=== PATIENT | female | born 1955 | race Caucasian/White ===

== ENCOUNTER 2017-08-24 16:34 | Inpatient (IN) | payer OTHER ==
[2017-08-24] VITALS (8 sets, daily range): BP systolic 144–204; BP diastolic 67–99; PULSE 43–82; RESP 16–22; TEMP 97.3; O2SAT 95–100
[~2017-08-24] VITALS: Ht 160 cm; Wt 60.5 kg
[~2017-08-24 16:34] MED LIST: ALPR0.5T3 PO; AMBI5TAB PO; ASPI81TA82 PO; CARV6.252 PO; HYDR-2768 PO; IRBE150T49 PO; LEVO.025 PO; NIFE1TAB86 PO; ZOCO40TA PO
[2017-08-24] MEDS ORDERED: SODIUM CHLORIDE 0.9% FLUSH 10 ML FLUSH IVF PRN (17:15)
[2017-08-24] MEDS ORDERED: ASPIRIN 81 MG CHEW TAB PO ONE (17:30)
--- NOTE | 2017-08-24 17:43 | PD ---
HPI Chief Complaint: Chest Pain Time Seen by Provider: 17:10 Travel History International Travel<30 days: No Contact w/Intl Traveler<30days: No Traveled to known affect area: No History of Present Illness HPI 62-year-old female states she developed chest pain with left arm numbness and sweaty feeling this morning. She states this weekend she flew up to [place] for her daughter's wedding and flew back yesterday. She denies other concurrent complaints other than intermittent shortness of breath. She states she took a baby aspirin today. She denies any prior cardiac issues or routine heart testing. She denies specific modifying factors. Quality is pressure. Severity is moderate. Duration is today. She states she tried a Xanax without relief. PFS Past Medical History Anxiety: Yes Cancer: No Cardiovascular Problems: Yes (HYPERTENSION) Diabetes: No Diminished Hearing: No Genitourinary: No Hypertension: Yes Reproductive: No Migraines: Yes Thyroid Disease: Yes Past Surgical History Abdominal Surgery: Yes (GALLBLADDER) Gynecologic Surgery: Yes (HYSTERECTOMY) Hysterectomy: Yes Oral Surgery: Yes (ADENOTONSILLECTOMY) Pacemaker: No Social History Alcohol Use: No Tobacco Use: No Substance Use: No Allergies-Medications (Allergen,Severity, Reaction): Coded Allergies: No Known Allergies (Unverified , 01/14/16) Reported Meds & Prescriptions Reported Meds & Active Scripts Active Reported K-Tab (Potassium Chloride) 20 Meq Tab 40 Meq PO DAILY Levothyroxine (Levothyroxine Sodium) 50 Mcg Tab 50 Mcg PO DAILY Losartan (Losartan Potassium) 50 Mg Tab 50 Mg PO BID Coreg (Carvedilol) 6.25 Mg Tab 6.25 Mg PO BID Alprazolam 0.5 Mg Tab 0.5-1 Mg PO BID PRN Vitamin D3 (Cholecalciferol) 50,000 Unit Cap 50,000 Units PO WEEKLY Nifedipine ER 24 HR (Nifedipine) 60 Mg Tab 60 Mg PO DAILY Hydrochlorothiazide 25 Mg Tab 25 Mg PO DAILY Prozac (Fluoxetine HCl) 20 Mg Cap 40 Mg PO DAILY Review of Systems Except as stated in HPI: all other systems reviewed are Neg Physical Exam Narrative GENERAL: 62-year-old female in no apparent distress SKIN: Focused skin assessment warm/dry. HEAD: Atraumatic. Normocephalic. EYES: Pupils equal and round. No scleral icterus. No injection or drainage. ENT: No nasal bleeding or discharge. Mucous membranes pink and moist. NECK: Trachea midline. CARDIOVASCULAR: Regular rate and rhythm. No murmur appreciated. RESPIRATORY: No accessory muscle use. Clear to auscultation. Breath sounds equal bilaterally. GASTROINTESTINAL: Abdomen soft, non-tender, nondistended. MUSCULOSKELETAL: No obvious deformities. No clubbing. No cyanosis. Mild bilateral pedal edema noted NEUROLOGICAL: Awake and alert. No obvious cranial nerve deficits. Motor grossly within normal limits. Normal speech. PSYCHIATRIC: Appropriate mood and affect; insight and judgment normal. Data Data Last Documented VS Vital Signs Date Time Temp Pulse Resp B/P (MAP) Pulse Ox O2 Delivery O2 Flow Rate FiO2 08/24/17 17:41 66 18 98 08/24/17 17:41 153/69 (97) Room Air 08/24/17 16:46 97.3 Orders Orders Electrocardiogram (08/24/17 17:11) B-Type Natriuretic Peptide (08/24/17 17:11) Ckmb (Isoenzyme) Profile (08/24/17 17:11) Complete Blood Count With Diff (08/24/17 17:11) Comprehensive Metabolic Panel (08/24/17 17:11) D-Dimer (08/24/17 17:11) Magnesium (Mg) (08/24/17 17:11) Prothrombin Time / Inr (Pt) (08/24/17 17:11) Act Partial Throm Time (Ptt) (08/24/17 17:11) Troponin I (08/24/17 17:11) Chest, Single Ap (08/24/17 17:11) Ecg Monitoring (08/24/17 17:11) Bilateral Bp Monitoring (08/24/17 17:11) Iv Access Insert/Monitor (08/24/17 17:11) Oximetry (08/24/17 17:11) Sodium Chloride 0.9% Flush (Ns Flush) (08/24/17 17:15) Aspirin Chew (Aspirin Chew) (08/24/17 17:30) Potassium Chloride Eff (K-Lyte Cl Eff) (08/24/17 18:45) Nitroglycerin 2% Oint (Nitroglycerin 2% (08/24/17 19:00) Admit Order (Ed Use Only) (08/24/17 18:55) Labs Laboratory Tests Test 08/24/17 17:55 White Blood Count 7.6 TH/MM3 Red Blood Count 3.96 MIL/MM3 Hemoglobin 12.8 GM/DL Hematocrit 36.9 % Mean Corpuscular Volume 93.2 FL Mean Corpuscular Hemoglobin 32.3 PG Mean Corpuscular Hemoglobin Concent 34.7 % Red Cell Distribution Width 12.9 % Platelet Count 212 TH/MM3 Mean Platelet Volume 9.2 FL Neutrophils (%) (Auto) 75.2 % Lymphocytes (%) (Auto) 15.3 % Monocytes (%) (Auto) 7.5 % Eosinophils (%) (Auto) 1.4 % Basophils (%) (Auto) 0.6 % Neutrophils # (Auto) 5.7 TH/MM3 Lymphocytes # (Auto) 1.2 TH/MM3 Monocytes # (Auto) 0.6 TH/MM3 Eosinophils # (Auto) 0.1 TH/MM3 Basophils # (Auto) 0.0 TH/MM3 CBC Comment DIFF FINAL Differential Comment Prothrombin Time 10.2 SEC Prothromb Time International Ratio 1.0 RATIO Activated Partial Thromboplast Time 25.3 SEC D-Dimer Quantitative (PE/DVT) 0.41 MG/L FEU Blood Urea Nitrogen 17 MG/DL Creatinine 0.70 MG/DL Random Glucose 110 MG/DL Total Protein 7.2 GM/DL Albumin 3.6 GM/DL Calcium Level 8.7 MG/DL Magnesium Level 1.9 MG/DL Alkaline Phosphatase 64 U/L Aspartate Amino Transf (AST/SGOT) 22 U/L Alanine Aminotransferase (ALT/SGPT) 29 U/L Total Bilirubin 0.3 MG/DL Sodium Level 138 MEQ/L Potassium Level 3.0 MEQ/L Chloride Level 102 MEQ/L Carbon Dioxide Level 28.6 MEQ/L Anion Gap 7 MEQ/L Estimat Glomerular Filtration Rate 85 ML/MIN Total Creatine Kinase 75 U/L Troponin I 0.14 NG/ML [facility] Medical Decision Making Medical Screen Exam Complete: Yes Emergency Medical Condition: Yes Medical Record Reviewed: Yes (Past history confirmed) Interpretation(s) CBC & BMP Diagram 08/24/17 17:55 Total Protein 7.2, Albumin 3.6, Calcium Level 8.7, Magnesium Level 1.9, Alkaline Phosphatase 64, Aspartate Amino Transf (AST/SGOT) 22, Alanine Aminotransferase (ALT/SGPT) 29, Total Bilirubin 0.3 Last 24 hours Impressions Chest X-Ray 08/24/17 1711 Signed Impressions: Service Date/Time: Thursday, August 24, 2017 17:39 - CONCLUSION: No acute cardiopulmonary disease identified. Ab Luna MD Differential Diagnosis Anemia, AR, PE Narrative Course We will check blood work, chest x-ray, EKG and dose with aspirin and reevaluate. D-dimer is negative. Troponin with mild elevation. Will admit for further cardiac workup. Physician Communication Physician Communication dr shepard states to admit to dr caruso Diagnosis Primary Impression: Chest pain Qualified Codes: R07.9 - Chest pain, unspecified Additional Impressions: Elevated troponin Hypokalemia Admitting Information Admitting Physician Requests: Observation Leydi Purvis MD Aug 24, 2017 17:43
[2017-08-24] MEDS ORDERED: ALPR0.5T3 PO (18:00)
[2017-08-24] MEDS ORDERED: LEVO50TA4 PO (18:00)
[2017-08-24] MEDS ORDERED: CARV6.25 PO (18:00)
[2017-08-24] MEDS ORDERED: POTA1TAB4 PO (18:00)
[2017-08-24] MEDS ORDERED: HYDR25TA5 PO (18:00)
[2017-08-24] MEDS ORDERED: NIFE60TA58 PO (18:00)
[2017-08-24] MEDS ORDERED: LOSA50TA PO (18:00)
[2017-08-24] MEDS ORDERED: PROZ20CA11 PO (18:00)
[2017-08-24] MEDS ORDERED: CHOL1CAP34 PO (18:00)
--- NOTE | 2017-08-24 18:02 | RADRPT ---
EXAM DATE/TIME: 08/24/2017 17:39 [facility] COMPARISON: No previous studies available for comparison. INDICATIONS : Chest pain. MEDICAL HISTORY : Hypertension. SURGICAL HISTORY : None. ENCOUNTER: Initial ACUITY: 1 day PAIN SCORE: 7/10 LOCATION: middle chest. FINDINGS: Single AP view of the chest. The lungs are clear. Cardiomediastinal silhouette within normal limits. No evidence of pleural effusion or pneumothorax. CONCLUSION: No acute cardiopulmonary disease identified. Ab Luna MD on August 24, 2017 at 17:59 Board Certified Radiologist. This report was verified electronically.
[2017-08-24 18:05] LABS: AUTOMATED NEUTROPHIL # 5.7 TH/MM3 (1.8-7.7); BASOPHIL % 0.6 % (0.0-2.0); EOSINOPHIL # 0.1 TH/MM3 (0-0.4); EOSINOPHIL % 1.4 % (0.0-4.0); HEMATOCRIT 36.9 % (35.0-46.0); HEMOGLOBIN 12.8 GM/DL (11.6-15.3); LYMPH % 15.3 % (9.0-44.0); LYMPHOCYTE # 1.2 TH/MM3 (1.0-4.8); MEAN CELL VOLUME 93.2 FL (80.0-100.0); MEAN CORPUSCULAR HEMOGLOBIN 32.3 PG (27.0-34.0); MEAN CORPUSCULAR HGB CONC 34.7 % (32.0-36.0); MEAN PLATELET VOLUME 9.2 FL (7.0-11.0); MONO % 7.5 % (0.0-8.0); MONOCYTE # 0.6 TH/MM3 (0-0.9); NEUT % 75.2 % (16.0-70.0); PLATELET COUNT 212 TH/MM3 (150-450); RED BLOOD COUNT 3.96 MIL/MM3 (4.00-5.30); RED CELL DISTRIBUTION WIDTH 12.9 % (11.6-17.2); WHITE BLOOD COUNT 7.6 TH/MM3 (4.0-11.0)
[2017-08-24 18:22] LABS: PROTHROMBIN TIME - PATIENT 10.2 SEC (9.8-11.6)
[2017-08-24 18:23] LABS: D-DIMER 0.41 MG/L FEU (0.00-0.50)
[2017-08-24 18:34] LABS: ALBUMIN 3.6 GM/DL (3.4-5.0); ALT (GPT) 29 U/L (10-53); BICARBONATE 28.6 MEQ/L (21.0-32.0); BLOOD UREA NITROGEN 17 MG/DL (7-18); CALCIUM 8.7 MG/DL (8.5-10.1); CHLORIDE 102 MEQ/L (98-107); GLOMERULAR FILTRATION RATE 85 ML/MIN (>89); GLUCOSE,RANDOM 110 MG/DL (74-106); MAGNESIUM 1.9 MG/DL (1.5-2.5); SODIUM (NA) 138 MEQ/L (136-145)
[2017-08-24 18:35] LABS: AST (GOT) 22 U/L (15-37)
[2017-08-24 18:38] LABS: ALKALINE PHOSPHATASE 64 U/L (45-117); TOTAL BILIRUBIN ADULT 0.3 MG/DL (0.2-1.0); TOTAL PROTEIN 7.2 GM/DL (6.4-8.2); TROPONIN I 0.14 NG/ML (0.02-0.05)
[2017-08-24] MEDS ORDERED: POTASSIUM CHLORIDE 25 MEQ EFFERVESCENT TAB PO ONE (18:45)
[2017-08-24] MEDS ORDERED: NITROGLYCERIN 2% OINT 1 GM PACKET TOP ONE (19:00)
[2017-08-24] MEDS ORDERED: MORPHINE SULFATE 4 MG/ML INJ IV PUSH ONE (19:15)
[2017-08-24] MEDS ORDERED: ONDANSETRON HCL 4 MG/2 ML VIAL IV PUSH ONE (19:15)
[2017-08-24] MEDS ORDERED: NITROGLYCERIN-D5W 50 MG/250 ML 250 ML IV PRN (20:30)
[2017-08-24] MEDS ORDERED: [UNRECOGNIZED DRUG - OTHER] SCH (20:30)
[2017-08-24] MEDS ORDERED: LACTULOSE SYRUP 20 GM/30 ML CUP PO PRN (21:00)
[2017-08-24] MEDS ORDERED: MAGNESIUM HYDROXIDE SUSP 30 ML CUP PO PRN (21:00)
[2017-08-24] MEDS ORDERED: SENNOSIDES 8.6 MG TAB PO PRN (21:00)
[2017-08-24] MEDS ORDERED: ONDANSETRON HCL 4 MG/2 ML VIAL IVP PRN (21:00)
[2017-08-24] MEDS ORDERED: SODIUM CHLORIDE 0.9% FLUSH 10 ML FLUSH IV FLUSH PRN (21:00)
[2017-08-24] MEDS ORDERED: ALPRAZolam 0.5 MG TAB PO PRN (21:00)
[2017-08-24] MEDS ORDERED: BISACODYL 10 MG SUPP RECTAL PRN (21:00)
[2017-08-24] MEDS ORDERED: NALOXONE HCL 0.4 MG/ML AMP IV PUSH PRN (21:00)
[2017-08-24] MEDS: CARVEDILOL 6.25 MG TAB PO SCH (21:04)
[2017-08-24] MEDS: LOSARTAN 50 MG TAB PO SCH (21:05)
[2017-08-24] MEDS ORDERED: HEPARIN-D5W 25,000 U/250 ML 250 ML IV PRN (21:15)
[2017-08-24] MEDS: SODIUM CHLORIDE 0.9% FLUSH 10 ML FLUSH IV FLUSH SCH (21:37)
--- NOTE | 2017-08-24 21:46 | HHI.HP ---
HPI Service [facility] Hospitalists Primary Care Physician Babatunde Oneal M.D. Admission Diagnosis chest pain, elevated troponin Chief Complaint: chest pain today Travel History International Travel<30 Days: No Contact w/Intl Traveler <30 Da: No Traveled to Known Affected Are: No History of Present Illness 62-year-old female states she developed chest pain with left arm numbness and sweaty feeling this morning. She states this weekend she flew up to [place] for her daughter's wedding and flew back yesterday. She denies other concurrent complaints other than intermittent shortness of breath. She states she took a baby aspirin today. She denies any prior cardiac issues or routine heart testing. She denies specific modifying factors. Quality is pressure. Severity is moderate. Duration is today. She states she tried a Xanax without relief. Patient also has had intermittant diaphoresis and nausea and vomit , patient in er received IV morphine and ntg paste but pain continued and started on nitro drip which is helping will admit to IMC or CVICU consult cardiology. Review of Systems Constitutional: COMPLAINS OF: Diaphoretic episodes, Fatigue Respiratory: COMPLAINS OF: Shortness of breath Cardiovascular: COMPLAINS OF: Chest pain Gastrointestinal: COMPLAINS OF: Nausea, Vomiting Past Family Social History Past Medical History hypertension,depression ,anxiety Past Surgical History GB,hysterectomy,tonsil Reported Medications K-Tab (Potassium Chloride) 20 Meq Tab 40 Meq PO DAILY Levothyroxine (Levothyroxine Sodium) 50 Mcg Tab 50 Mcg PO DAILY Losartan (Losartan Potassium) 50 Mg Tab 50 Mg PO BID Coreg (Carvedilol) 6.25 Mg Tab 6.25 Mg PO BID Alprazolam 0.5 Mg Tab 0.5-1 Mg PO BID PRN Vitamin D3 (Cholecalciferol) 50,000 Unit Cap 50,000 Units PO WEEKLY Nifedipine ER 24 HR (Nifedipine) 60 Mg Tab 60 Mg PO DAILY Hydrochlorothiazide 25 Mg Tab 25 Mg PO DAILY Prozac (Fluoxetine HCl) 20 Mg Cap 40 Mg PO DAILY Allergies: Coded Allergies: No Known Allergies (Unverified , 01/14/16) Social History NS,ND Physical Exam Vital Signs Vital Signs Date Time Temp Pulse Resp B/P (MAP) Pulse Ox O2 Delivery O2 Flow Rate FiO2 08/24/17 20:59 61 173/76 08/24/17 20:21 65 16 204/91 (128) 100 Room Air 08/24/17 19:27 77 18 167/99 (121) 100 08/24/17 19:05 67 18 190/88 (122) 98 Room Air 08/24/17 17:41 66 18 98 08/24/17 17:41 68 18 153/69 (97) 99 Room Air 08/24/17 17:13 18 08/24/17 16:46 97.3 43 22 199/96 (130) 100 Physical Exam GENERAL: This is a well-nourished, well-developed patient, in no apparent distress but was in distress earlier when had chest pain SKIN: No rashes, ecchymoses or lesions. Cool and dry. HEAD: Atraumatic. Normocephalic. No temporal or scalp tenderness. EYES: Pupils equal round and reactive. Extraocular motions intact. No scleral icterus. No injection or drainage. ENT: Nose without bleeding, purulent drainage or septal hematoma. Throat without erythema, tonsillar hypertrophy or exudate. Uvula midline. Airway patent. NECK: Trachea midline. No JVD or lymphadenopathy. Supple, nontender, no meningeal signs. CARDIOVASCULAR: Regular rate and rhythm without murmurs, gallops, or rubs. RESPIRATORY: Clear to auscultation. Breath sounds equal bilaterally. No wheezes , rales, or rhonchi. GASTROINTESTINAL: Abdomen soft, non-tender, nondistended. No hepato-splenomegaly , or palpable masses. No guarding. MUSCULOSKELETAL: Extremities without clubbing, cyanosis, or edema. No joint tenderness, effusion, or edema noted. No calf tenderness. Negative Homans sign bilaterally. NEUROLOGICAL: Awake and alert. Cranial nerves II through XII intact. Motor and sensory grossly within normal limits. Five out of 5 muscle strength in all muscle groups. Normal speech. Laboratory Laboratory Tests Test 08/24/17 17:55 08/24/17 21:20 White Blood Count 7.6 Red Blood Count 3.96 Hemoglobin 12.8 Hematocrit 36.9 Mean Corpuscular Volume 93.2 Mean Corpuscular Hemoglobin 32.3 Mean Corpuscular Hemoglobin Concent 34.7 Red Cell Distribution Width 12.9 Platelet Count 212 Mean Platelet Volume 9.2 Neutrophils (%) (Auto) 75.2 Lymphocytes (%) (Auto) 15.3 Monocytes (%) (Auto) 7.5 Eosinophils (%) (Auto) 1.4 Basophils (%) (Auto) 0.6 Neutrophils # (Auto) 5.7 Lymphocytes # (Auto) 1.2 Monocytes # (Auto) 0.6 Eosinophils # (Auto) 0.1 Basophils # (Auto) 0.0 CBC Comment DIFF FINAL Differential Comment Prothrombin Time 10.2 Prothromb Time International Ratio 1.0 Activated Partial Thromboplast Time 25.3 D-Dimer Quantitative (PE/DVT) 0.41 Blood Urea Nitrogen 17 Creatinine 0.70 Random Glucose 110 Total Protein 7.2 Albumin 3.6 Calcium Level 8.7 Magnesium Level 1.9 Alkaline Phosphatase 64 Aspartate Amino Transf (AST/SGOT) 22 Alanine Aminotransferase (ALT/SGPT) 29 Total Bilirubin 0.3 Sodium Level 138 Potassium Level 3.0 Chloride Level 102 Carbon Dioxide Level 28.6 Anion Gap 7 Estimat Glomerular Filtration Rate 85 Total Creatine Kinase 75 Troponin I 0.14 B-Type Natriuretic Peptide 33 Lipase 108 Result Diagram: 08/24/17 1755 08/24/17 1755 Imaging Last 24 hours Impressions Chest X-Ray 08/24/17 1711 Signed Impressions: Service Date/Time: Thursday, August 24, 2017 17:39 - CONCLUSION: No acute cardiopulmonary disease identified. Ab Luna MD Course started ntg drip iv morphine Caprini VTE Risk Assessment Caprini VTE Risk Assessment: Mod/High Risk (score >= 2) Caprini Risk Assessment Model Point Value = 1 Point Value = 2 Point Value = 3 Point Value = 5 Age 41-60 Minor surgery BMI > 25 kg/m2 Swollen legs Varicose veins or History of unexplained or recurrent spontaneous Oral contraceptives or hormone replacement Sepsis (< 1 month) Serious lung disease, including pneumonia (< 1 month) Abnormal pulmonary function Acute myocardial infarction Congestive heart failure (< 1 month) History of inflammatory bowel disease Medical patient at bed rest Age 61-74 Arthroscopic surgery Major open surgery (> 45 min) Laparoscopic surgery (> 45 min) Malignancy Confined to bed (> 72 hours) Immobilizing plaster cast Central venous access Age >= 75 History of VTE Family history of VTE Factor V Leiden Prothrombin [id number] Lupus anticoagulant Anticardiolipin antibodies Elevated serum homocysteine Heparin-induced thrombocytopenia Other congenital or acquired thrombophilia Stroke (< 1 month) Elective arthroplasty Hip, pelvis, or leg fracture Acute spinal cord injury (< 1 month) Prophylaxis Regimen Total Risk Factor Score Risk Level Prophylaxis Regimen 0-1 Low Early ambulation 2 Moderate Order ONE of the following: *Sequential Compression Device (SCD) *Heparin 5000 units SQ BID 3-4 Higher Order ONE of the following medications: *Heparin 5000 units SQ TID *Enoxaparin/Lovenox 40 mg SQ daily (WT < 150 kg, CrCl > 30 mL/min) *Enoxaparin/Lovenox 30 mg SQ daily (WT < 150 kg, CrCl > 10-29 mL/min) *Enoxaparin/Lovenox 30 mg SQ BID (WT < 150 kg, CrCl > 30 mL/min) AND/OR *Sequential Compression Device (SCD) 5 or more Highest Order ONE of the following medications: *Heparin 5000 units SQ TID (Preferred with Epidurals) *Enoxaparin/Lovenox 40 mg SQ daily (WT < 150 kg, CrCl > 30 mL/min) *Enoxaparin/Lovenox 30 mg SQ daily (WT < 150 kg, CrCl > 10-29 mL/min) *Enoxaparin/Lovenox 30 mg SQ BID (WT < 150 kg, CrCl > 30 mL/min) AND *Sequential Compression Device (SCD) Assessment and Plan Problem List: (1) Chest pain ICD Codes: R07.9 - Chest pain, unspecified Status: Acute Plan: admit to unit ntg drip morphine consult cardiology discussed will start heparin serial enzymes and ekg (2) Elevated troponin ICD Codes: R74.8 - Abnormal levels of other serum enzymes Status: Acute Plan: as above (3) HTN (hypertension) ICD Codes: I10 - Essential (primary) hypertension Status: Chronic Plan: continue home medications Assessment and Plan further plan as case develops Code Status full Discussed Condition With patient Physician Certification 2 Midnight Certification Type: Admission for Inpatient Services Order for Inpatient Services The services are ordered in accordance with Medicare regulations or non- Medicare payer requirements, as applicable. In the case of services not specified as inpatient-only, they are appropriately provided as inpatient services in accordance with the 2-midnight benchmark. Estimated LOS (days): 3 3 days is the estimated time the patient will need to remain in the hospital, assuming treatment plan goals are met and no additional complications. Post-Hospital Plan: Not yet determined Problem Qualifiers (1) Chest pain: Qualified Codes: R07.9 - Chest pain, unspecified Cucchiarella,Isma C. MD Aug 24, 2017 21:46
[2017-08-24] MEDS: DOCUSATE SODIUM 50 MG/SENNA 8.6 MG TAB PO SCH (21:52)
[2017-08-24] MEDS: PANTOPRAZOLE SODIUM 40 MG VIAL IV PUSH SCH (22:08)
[2017-08-24 22:11] LABS: TROPONIN I 0.98 NG/ML (0.02-0.05)
[2017-08-24 22:42] LABS: HEMATOCRIT 36.5 % (35.0-46.0); HEMOGLOBIN 12.5 GM/DL (11.6-15.3); MEAN CELL VOLUME 92.3 FL (80.0-100.0); MEAN CORPUSCULAR HEMOGLOBIN 31.6 PG (27.0-34.0); MEAN CORPUSCULAR HGB CONC 34.3 % (32.0-36.0); MEAN PLATELET VOLUME 9.6 FL (7.0-11.0); PLATELET COUNT 212 TH/MM3 (150-450); RED BLOOD COUNT 3.96 MIL/MM3 (4.00-5.30); WHITE BLOOD COUNT 7.1 TH/MM3 (4.0-11.0)
[2017-08-24 22:56] LABS: PROTHROMBIN TIME - PATIENT 10.4 SEC (9.8-11.6)
[2017-08-25] VITALS (26 sets, daily range): BP systolic 109–166; BP diastolic 55–78; PULSE 54–81; RESP 12–18; TEMP 97.5–99.3; O2SAT 94–97
[2017-08-25] MEDS: MORPHINE SULFATE 2 MG/ML SYRINGE IV PUSH PRN (00:20)
[2017-08-25 04:47] LABS: TROPONIN I 4.55 NG/ML (0.02-0.05)
[2017-08-25] MEDS: LEVOTHYROXINE SODIUM 50 MCG TAB PO SCH (06:00)
--- NOTE | 2017-08-25 07:39 | PD.CONS ---
HPI Consult Requested By Primary Care Physician Babatunde Oneal M.D. History of Present Illness 62-year-old female with past medical history of hypertension, hypothyroidism, depression who presented for chest pain. The patient states she was at work sitting at a desk yesterday when she developed sudden onset of midsternal chest heaviness, 6/10 severity, associated shortness of breath and nausea/vomiting. The pain increased to 10/10 and she presented to the ED. She was given aspirin and placed on heparin and nitroglycerin GTTs in the ED and reports this improved her chest pain down to 2/10 currently. Troponins have trended up from 0.14 to 4.55 overnight. EKG 2 show some slight lateral ST depressions. She denies ever having any chest pain or heart problems in the past. Quit smoking 8 years ago. Denies any family history of heart disease. (Sudheer Antonio) Review of Systems Negative except as stated in the HPI (Sudheer Antonio) Past Family Social History Allergies: Coded Allergies: No Known Allergies (Unverified , 01/14/16) Past Medical History Hypertension Hypothyroidism Anxiety/depression Past Surgical History Cholecystectomy Hysterectomy Tonsillectomy Colonoscopy Reported Medications Reported Meds & Active Scripts Active Reported K-Tab (Potassium Chloride) 20 Meq Tab 40 Meq PO DAILY Levothyroxine (Levothyroxine Sodium) 50 Mcg Tab 50 Mcg PO DAILY Losartan (Losartan Potassium) 50 Mg Tab 50 Mg PO BID Coreg (Carvedilol) 6.25 Mg Tab 6.25 Mg PO BID Alprazolam 0.5 Mg Tab 0.5-1 Mg PO BID PRN Vitamin D3 (Cholecalciferol) 50,000 Unit Cap 50,000 Units PO WEEKLY Nifedipine ER 24 HR (Nifedipine) 60 Mg Tab 60 Mg PO DAILY Hydrochlorothiazide 25 Mg Tab 25 Mg PO DAILY Prozac (Fluoxetine HCl) 20 Mg Cap 40 Mg PO DAILY Active Ordered Medications Current Medications Medications (Trade) Dose Ordered Sig/James Route Start Time Stop Time Status Last Admin Nitroglycerin/ Dextrose 250 ml @ 1.5 mls/hr TITRATE PRN IV 08/24/17 20:30 08/24/17 20:59 (Xanax) 0.5 mg BID PRN PO 08/24/17 21:00 (Coreg) 6.25 mg BID PO 08/24/17 21:00 08/24/17 21:04 (PROzac) 40 mg DAILY PO 08/25/17 09:00 (Hydrodiuril) 25 mg DAILY PO 08/25/17 09:00 (Synthroid) 50 mcg DAILY@0600 PO 08/25/17 06:00 (Cozaar) 50 mg BID PO 08/24/17 21:00 08/24/17 21:05 (Procardia Xl) 60 mg DAILY PO 08/25/17 09:00 (KCl) 40 meq DAILY PO 08/25/17 09:00 (Drisdol) 50,000 units We@0900 PO 08/25/17 09:00 (NS Flush) 2 ml UNSCH PRN IV FLUSH 08/24/17 21:00 (NS Flush) 2 ml BID IV FLUSH 08/24/17 21:00 (Tylenol) 650 mg Q4H PRN PO 08/24/17 21:00 (Zofran Inj) 4 mg Q6H PRN IVP 08/24/17 21:00 (Morphine Inj) 2 mg Q4HR PRN IV PUSH 08/24/17 21:00 08/25/17 00:20 (Narcan Inj) 0.4 mg UNSCH PRN IV PUSH 08/24/17 21:00 (Maryam-Colace) 1 tab BID PO 08/24/17 21:00 (Milk Of Magnesia Liq) 30 ml Q12H PRN PO 08/24/17 21:00 (Senokot) 17.2 mg Q12H PRN PO 08/24/17 21:00 (Dulcolax Supp) 10 mg DAILY PRN RECTAL 08/24/17 21:00 (Lactulose Liq) 30 ml DAILY PRN PO 08/24/17 21:00 Heparin Sodium/ Dextrose 250 ml @ 7 mls/hr TITRATE PRN IV 08/24/17 21:15 08/24/17 23:05 (Protonix Inj) 40 mg Q24H IV PUSH 08/24/17 22:00 08/24/17 22:08 Family History Denies any family history of heart disease Social History Former smoker, quit 8 years ago Nondrinker (Sudheer Antonio) Physical Exam Vital Signs Vital Signs Date Time Temp Pulse Resp B/P (MAP) Pulse Ox O2 Delivery O2 Flow Rate FiO2 08/25/17 06:00 56 08/25/17 05:00 54 08/25/17 04:00 54 08/25/17 03:00 55 08/25/17 03:00 97.5 58 12 133/69 (90) 97 08/25/17 02:00 56 08/25/17 01:00 58 08/25/17 00:09 08/25/17 00:00 98.1 58 16 166/78 (107) 97 08/25/17 00:00 62 08/24/17 23:06 66 18 144/67 (92) 98 Room Air 08/24/17 22:35 82 18 156/72 (100) 98 Room Air 08/24/17 22:27 95 08/24/17 20:59 61 173/76 08/24/17 20:21 65 16 204/91 (128) 100 Room Air 08/24/17 19:27 77 18 167/99 (121) 100 08/24/17 19:05 67 18 190/88 (122) 98 Room Air 08/24/17 17:41 66 18 98 08/24/17 17:41 68 18 153/69 (97) 99 Room Air 08/24/17 17:13 18 08/24/17 16:46 97.3 43 22 199/96 (130) 100 Physical Exam GENERAL: Well-developed well-nourished. In no acute distress. NECK: No carotid bruits. No JVD. CARDIOVASCULAR: Regular rate and rhythm. No murmur appreciated. RESPIRATORY: No accessory muscle use. Clear to auscultation. Breath sounds equal bilaterally. MUSCULOSKELETAL: No clubbing or cyanosis. No edema. NEUROLOGICAL: Awake and alert. Normal speech. Laboratory Laboratory Tests Test 08/24/17 17:55 08/24/17 21:20 08/24/17 22:00 08/25/17 03:09 White Blood Count 7.6 7.1 Red Blood Count 3.96 3.96 Hemoglobin 12.8 12.5 Hematocrit 36.9 36.5 Mean Corpuscular Volume 93.2 92.3 Mean Corpuscular Hemoglobin 32.3 31.6 Mean Corpuscular Hemoglobin Concent 34.7 34.3 Red Cell Distribution Width 12.9 13.0 Platelet Count 212 212 Mean Platelet Volume 9.2 9.6 Neutrophils (%) (Auto) 75.2 Lymphocytes (%) (Auto) 15.3 Monocytes (%) (Auto) 7.5 Eosinophils (%) (Auto) 1.4 Basophils (%) (Auto) 0.6 Neutrophils # (Auto) 5.7 Lymphocytes # (Auto) 1.2 Monocytes # (Auto) 0.6 Eosinophils # (Auto) 0.1 Basophils # (Auto) 0.0 CBC Comment DIFF FINAL Differential Comment Prothrombin Time 10.2 10.4 Prothromb Time International Ratio 1.0 1.0 Activated Partial Thromboplast Time 25.3 24.5 32.5 D-Dimer Quantitative (PE/DVT) 0.41 Blood Urea Nitrogen 17 Creatinine 0.70 Random Glucose 110 Total Protein 7.2 Albumin 3.6 Calcium Level 8.7 Magnesium Level 1.9 Alkaline Phosphatase 64 Aspartate Amino Transf (AST/SGOT) 22 Alanine Aminotransferase (ALT/SGPT) 29 Total Bilirubin 0.3 Sodium Level 138 Potassium Level 3.0 Chloride Level 102 Carbon Dioxide Level 28.6 Anion Gap 7 Estimat Glomerular Filtration Rate 85 Total Creatine Kinase 75 90 173 Troponin I 0.14 0.98 4.55 B-Type Natriuretic Peptide 33 Lipase 108 (Sudheer Antonio) Result Diagram: 08/24/17 2200 08/24/17 1755 Imaging Last Impressions Chest X-Ray 08/24/17 1711 Signed Impressions: Service Date/Time: Thursday, August 24, 2017 17:39 - CONCLUSION: No acute cardiopulmonary disease identified. Ab Luna MD (Sudheer Antonio) Assessment and Plan Assessment and Plan 62-year-old female with past medical history of hypertension, hypothyroidism, depression who presented for chest pain. The patient states she was at work sitting at a desk yesterday when she developed sudden onset of midsternal chest heaviness, 6/10 severity, associated shortness of breath and nausea/vomiting. The pain increased to 10/10 and she presented to the ED. She was given aspirin and placed on heparin and nitroglycerin GTTs in the ED and reports this improved her chest pain down to 2/10 currently. Troponins have trended up from 0.14 to 4.55 overnight. EKG 2 show some slight lateral ST depressions.She denies ever having any chest pain or heart problems in the past. Quit smoking 8 years ago. Denies any family history of heart disease. NSTEMI: N.p.o. after light breakfast for cardiac catheterization this afternoon , hold HCTZ. Continue heparin and nitroglycerin drips. Check echo. Discussed Condition With Patient with at bedside, Dr. Baum (Sudheer Antonio) Assessment and Plan NSTEMI heparin and nitro gtt 2d echo - suspect aortic sclerosis NPO [facility] (Jarett Baum MD) Sudheer Antonio Aug 25, 2017 07:39 Jarett Baum MD Aug 25, 2017 07:51
[2017-08-25] MEDS: CARVEDILOL 6.25 MG TAB PO SCH (08:51)
[2017-08-25] MEDS ORDERED: ERGOCALCIFEROL (VIT D2) 50,000 UNIT CAP PO SCH (09:00)
[2017-08-25] MEDS ORDERED: NIFEdipine 60 MG SUSTAINED RELEASE TAB PO SCH (09:00)
[2017-08-25] MEDS ORDERED: HYDROCHLOROTHIAZIDE 25 MG TAB PO SCH (09:00)
--- NOTE | 2017-08-25 09:02 | EKG ---
Date Performed: 08/24/2017 Time Performed: 20:23:09 PTAGE: 62 years EKG: Sinus rhythm POSSIBLE LEFT ATRIAL ENLARGEMENT MODERATE ST DEPRESSION ABNORMAL ECG PREVIOUS TRACING : 08/03/2012 06.39 DOCTOR: Jarett Baum Interpretating Date/Time 08/25/2017 09:00:58
--- NOTE | 2017-08-25 09:13 | EKG ---
Date Performed: 08/24/2017 Time Performed: 16:58:29 PTAGE: 62 years EKG: Sinus rhythm POSSIBLE LEFT ATRIAL ENLARGEMENT MODERATE ST DEPRESSION ABNORMAL ECG NO PREVIOUS TRACING DOCTOR: Jarett Baum Interpretating Date/Time 08/25/2017 09:11:11
--- NOTE | 2017-08-25 09:29 | HHI.PR ---
Subjective Remarks Patient currently NPO for cardiac cath this afternoon offers no complaints at this time continues on heparin and nitro drip at this time Objective Vitals Vital Signs Date Time Temp Pulse Resp B/P (MAP) Pulse Ox O2 Delivery O2 Flow Rate FiO2 08/25/17 06:00 56 08/25/17 05:00 54 08/25/17 04:00 54 08/25/17 03:00 55 08/25/17 03:00 97.5 58 12 133/69 (90) 97 08/25/17 02:00 56 08/25/17 01:00 58 08/25/17 00:09 08/25/17 00:00 98.1 58 16 166/78 (107) 97 08/25/17 00:00 62 08/24/17 23:06 66 18 144/67 (92) 98 Room Air 08/24/17 22:35 82 18 156/72 (100) 98 Room Air 08/24/17 22:27 95 08/24/17 20:59 61 173/76 08/24/17 20:21 65 16 204/91 (128) 100 Room Air 08/24/17 19:27 77 18 167/99 (121) 100 08/24/17 19:05 67 18 190/88 (122) 98 Room Air 08/24/17 17:41 66 18 98 08/24/17 17:41 68 18 153/69 (97) 99 Room Air 08/24/17 17:13 18 08/24/17 16:46 97.3 43 22 199/96 (130) 100 Result Diagram: 08/24/17 2200 08/24/17 7390 Other Results Laboratory Tests Test 08/24/17 17:55 08/24/17 21:20 08/24/17 22:00 08/25/17 03:09 White Blood Count 7.6 TH/MM3 7.1 TH/MM3 Red Blood Count 3.96 MIL/MM3 3.96 MIL/MM3 Hemoglobin 12.8 GM/DL 12.5 GM/DL Hematocrit 36.9 % 36.5 % Mean Corpuscular Volume 93.2 FL 92.3 FL Mean Corpuscular Hemoglobin 32.3 PG 31.6 PG Mean Corpuscular Hemoglobin Concent 34.7 % 34.3 % Red Cell Distribution Width 12.9 % 13.0 % Platelet Count 212 TH/MM3 212 TH/MM3 Mean Platelet Volume 9.2 FL 9.6 FL Neutrophils (%) (Auto) 75.2 % Lymphocytes (%) (Auto) 15.3 % Monocytes (%) (Auto) 7.5 % Eosinophils (%) (Auto) 1.4 % Basophils (%) (Auto) 0.6 % Neutrophils # (Auto) 5.7 TH/MM3 Lymphocytes # (Auto) 1.2 TH/MM3 Monocytes # (Auto) 0.6 TH/MM3 Eosinophils # (Auto) 0.1 TH/MM3 Basophils # (Auto) 0.0 TH/MM3 CBC Comment DIFF FINAL Differential Comment Prothrombin Time 10.2 SEC 10.4 SEC Prothromb Time International Ratio 1.0 RATIO 1.0 RATIO Activated Partial Thromboplast Time 25.3 SEC 24.5 SEC 32.5 SEC D-Dimer Quantitative (PE/DVT) 0.41 MG/L FEU Blood Urea Nitrogen 17 MG/DL Creatinine 0.70 MG/DL Random Glucose 110 MG/DL Total Protein 7.2 GM/DL Albumin 3.6 GM/DL Calcium Level 8.7 MG/DL Magnesium Level 1.9 MG/DL Alkaline Phosphatase 64 U/L Aspartate Amino Transf (AST/SGOT) 22 U/L Alanine Aminotransferase (ALT/SGPT) 29 U/L Total Bilirubin 0.3 MG/DL Sodium Level 138 MEQ/L Potassium Level 3.0 MEQ/L Chloride Level 102 MEQ/L Carbon Dioxide Level 28.6 MEQ/L Anion Gap 7 MEQ/L Estimat Glomerular Filtration Rate 85 ML/MIN Total Creatine Kinase 75 U/L 90 U/L 173 U/L Troponin I 0.14 NG/ML 0.98 NG/ML 4.55 NG/ML B-Type Natriuretic Peptide 33 PG/ML Lipase 108 U/L Imaging Last 24 hours Impressions Chest X-Ray 08/24/17 1711 Signed Impressions: Service Date/Time: Thursday, August 24, 2017 17:39 - CONCLUSION: No acute cardiopulmonary disease identified. Ab Luna MD Objective Remarks GENERAL: This is a well-nourished, well-developed patient, in no apparent distress. CARDIOVASCULAR: Bradycardic RESPIRATORY: Clear to auscultation. Breath sounds equal bilaterally. GASTROINTESTINAL: Abdomen soft, non-tender, nondistended. Normal active bowel sounds MUSCULOSKELETAL: Extremities without clubbing, cyanosis, or edema. NEURO: Alert & Oriented x4 to person, place, time, situation. Moves all ext x4 A/P Problem List: (1) Chest pain ICD Codes: R07.9 - Chest pain, unspecified Status: Acute Plan: NSTEMI ntg drip, heparin drio, morphine continue home Coreg 6.25 mg PO BID and Losartan 50 mg PO BID consult cardiology, Plan for cardiac catheterization this afternoon Echocardiogram requested and pending serial enzymes 0.14, 0.98, 4.55 add aspirin daily Lipid profile in AM (2) Elevated troponin ICD Codes: R74.8 - Abnormal levels of other serum enzymes Status: Acute Plan: as above (3) HTN (hypertension) ICD Codes: I10 - Essential (primary) hypertension Status: Chronic Plan: continue home Coreg 6.25 mg PO BID and Losartan 50 mg PO BID Home Nifedipine DC'd per cardiology (4) Hypothyroidism ICD Codes: E03.9 - Hypothyroidism, unspecified Status: Chronic Plan: Continue home Synthroid (5) Hypokalemia ICD Codes: E87.6 - Hypokalemia Status: Acute Plan: replaced in ER recheck (08/25) 3.1 with continue potassium 40 meq daily and give additional 40 meq x 1 Mag 1.9 recheck BMP in AM Problem Qualifiers (1) Chest pain: Qualified Codes: R07.9 - Chest pain, unspecified Leisa Alex Aug 25, 2017 09:29
[2017-08-25] MEDS: SODIUM CHLORIDE 0.9% FLUSH 10 ML FLUSH IV FLUSH SCH ×2 (09:51→20:29)
[2017-08-25] MEDS: DOCUSATE SODIUM 50 MG/SENNA 8.6 MG TAB PO SCH ×2 (09:52→20:29)
[2017-08-25] MEDS: LOSARTAN 50 MG TAB PO SCH ×2 (09:52→20:29)
[2017-08-25] MEDS: FLUoxetine HCL 20 MG CAP PO SCH (09:52)
[2017-08-25] MEDS: POTASSIUM CHLORIDE 20 MEQ CONTROLLED RELEASE TAB PO SCH (09:54)
[2017-08-25] MEDS: ACETAMINOPHEN 325 MG TAB PO PRN ×2 (10:08→20:05)
[2017-08-25 11:26] LABS: BICARBONATE 30.3 MEQ/L (21.0-32.0); CALCIUM 8.3 MG/DL (8.5-10.1); CREATININE 0.55 MG/DL (0.50-1.00)
--- NOTE | 2017-08-25 13:01 | ECHRPT ---
Indication: Chest pain CONCLUSIONS Normal left ventricular size. Wall thickness is measured at the upper limits of normal. Mild thickening of the mitral valve leaflets. Mild mitral valve regurgitation. There is trace tricuspid valve regurgitation. The estimated pulmonary arterial pressure is 27.8 mmHg. Mild pulmonary valve regurgitation. BP: 133 / 69 HR: 55 Rhythm: Sinus MEASUREMENTS (Male / Female) Normal Values Technical Quality:Fair 2D ECHO LV Diastolic Diameter PLAX 4.5 cm 4.2 - 5.9 / 3.9 - 5.3 cm LV Systolic Diameter PLAX 3.3 cm IVS Diastolic Thickness 1.2 cm 0.6 - 1.0 / 0.6 - 0.9 cm LVPW Diastolic Thickness 0.8 cm 0.6 - 1.0 / 0.6 - 0.9 cm LV Relative Wall Thickness 0.4 RV Internal Dim ED PLAX 2.5 cm LVOT Diameter 1.7 cm LA Systolic Diameter LX 3.2 cm 3.0 - 4.0 / 2.7 - 3.8 cm M-MODE Aortic Root Diameter MM 2.6 cm LA Systolic Diameter MM 3.3 cm LA Ao Ratio MM 1.3 AV Cusp Separation MM 1.6 cm DOPPLER AV Peak Velocity 135.0 cm/s AV Peak Gradient 7.3 mmHg LVOT Peak Velocity 87.5 cm/s LVOT Peak Gradient 3.1 mmHg AV Area Cont Eq pk 1.5 cm MV Area PHT 4.2 cm Mitral E Point Velocity 83.6 cm/s Mitral A Point Velocity 107.0 cm/s Mitral E to A Ratio 0.8 LV E' Lateral Velocity 7.8 cm/s Mitral E to LV E' Lateral Ratio 10.7 LV E' Septal Velocity 7.1 cm/s Mitral E to LV E' Septal Ratio 11.7 TR Peak Velocity 211.0 cm/s TR Peak Gradient 17.8 mmHg Right Atrial Pressure 10.0 mmHg Pulmonary Artery Systolic Pressu 27.8 mmHg Right Ventricular Systolic Press 27.8 mmHg FINDINGS LEFT VENTRICLE The left ventricular systolic function is normal with an estimated ejection fraction in the range of 60-65%. Normal left ventricular size. Wall thickness is measured at the upper limits of normal. RIGHT VENTRICLE Normal right ventricular size and systolic function. LEFT ATRIUM The left atrial size is normal. RIGHT ATRIUM The right atrial size is normal. ATRIAL SEPTUM Normal atrial septal thickness without atrial level shunting by limited color doppler interrogation. AORTA The aortic root and proximal ascending aorta are normal in size on limited imaging. MITRAL VALVE Mild thickening of the mitral valve leaflets. Mild mitral valve regurgitation. AORTIC VALVE Trileaflet aortic valve. No aortic valve stenosis or regurgitation. TRICUSPID VALVE Structurally normal tricuspid valve. There is trace tricuspid valve regurgitation. The estimated pulmonary arterial pressure is 27.8 mmHg. PULMONARY VALVE Mild pulmonary valve regurgitation. VESSELS The inferior vena cava is normal in size. PERICARDIUM No pericardial effusion. Jarett Baum MD, FACC (Electronically Signed) Final Date:25 August 2017 13:00
[2017-08-25] MEDS ORDERED: MIDAZOLAM HCL 2 MG/2 ML VIAL ONE (13:12)
[2017-08-25] MEDS ORDERED: HEPARIN-NS/PF FLUSH BAG 2,000 ML IV FLUSH ONE (13:16)
[2017-08-25] MEDS ORDERED: BIVALIRUDIN 250 MG VIAL ONE (13:27)
[2017-08-25] MEDS ORDERED: MISC INFORMATION XX ONE (13:45)
--- NOTE | 2017-08-25 13:47 | CATHPROC ---
[employer] HIS Report Study Information Study Number Admission Scheduled Start Study Start [id number] Aug 24 2017 9:10PM 08/25/2017 Aug 25 2017 12:50PM [place] Service Cardiac Catheterization Admit Source Facility Department Emergency department [facility] - Offensive Coordinator Physician and Clinical Staff Initial Jarett Cruz Liability Claims Representativehanna Murray RN, Sean Recorder Dorothy CannonBSN ScrBalbir Felipe RCIS(BS) Procedures Performed Procedure Location (Site) Vessel Name Coronary Angiograms LCA Left Coronary Coronary Angiograms RCA Right Coronary L Heart Cath Wire insertion Fem Art (right) Femoral Art Equipment Time Court Commissioner Description Size Mfg Part Number Used/Scraped TRANSDUCER, TRUWAVE [id number] 12:51 LADD WRAY * Used W/STOCKCOCK *[id number] *[id number] 12:51 [employer] PACK, CCL CUSTOM * Used *[id number] 12:51 [employer] SUPPORT, ARTERIAL ADULT 71082 *[id number] Used [id number] 12:51 [employer] PACER PEN, SKIN DUAL W/ RULER * Used *[id number] 13:24 [employer] JR 5.0 DXTERITY CATHETER fr 5 [id number] Used BAND, RADIAL COMPRESSION TR [id number] 13:31 PURE H20 [employer] MEDICAL 24CM Used SHORT 24 *[id number] SHEATH, FR6 RADIAL PRELUDE 12:51 [employer] FR 6 [id number] Used EASE 11CM [id number] 12:51 [employer] WIRE, EXCHANGE 260CM 3MMJ 260CM Used *[id number] 12:51 [employer] OMNIPAQUE, 350 MG, 150ML 150ML [id number] Used [id number] 12:51 [facility] BLANKET,WARM AIR CCL * Used *[id number] History: Current Medications Medication Dosage/Unit Route Frequency Last Date/Time Taken Synthroid CARVEDILOL Prozac History: Allergies Allergy Reaction No Known Allergies History: Risk Factors Family History of Hypertension Dyslipidemia Previous NE Previous Heart Failure Premature CAD Yes No No No No Prior Valve Prior PCI Prior CABG Surgery No No No Cerebrovascular Peripheral Artery Chronic Lung On Dialysis Diabetes Disease Disease Disease No Yes No No No History: Other Disease Selection Items Depression HTN History: Other Current Smoker Method Quit No Cigarettes 8 Years Ago Comment 3 to 4 cigarettes a day for 7 years Labs Hgb (g/dl) Hct (%) RBC (MIL/MM3) WBC (l/cumm) Platelets (thousands) 11.60-17.00 35.00-51.00 4.00-5.90 4.00-11.00 150.00-450.00 12.5 38.5 3.9 7.1 212 Glucose (mg/dl) BUN (mg/dl) Creatinine (mg/dl) BUN:Creatinine (1:x) 74.00-106.00 7.00-18.00 0.50-1.30 10.00-20.00 110 17 0.7 24.3 Na (meq/l) K (meq/l) 136.00-145.00 3.50-5.10 138 3 Troponin I (ng/ml) 0.02-0.05 4.5 Medication Medication Total Dose (Bolus/Oral) Medication Total Dosage/Unit 1% XYLOCAINE 20 mL FENTANYL 50 mcg HEPARIN 5000 units NTG (IC) 200 mcg VERSED 1 mg Medications (Bolus/Oral) Medication Time Given Dosage/Unit Administered By Reason VERSED 08/25/2017 1:14:22 PM 1 mg Sean Murray RN 1 mg VERSED given in lab by Sean Murray RN in Right Hand via Peripheral IV. Ordered by Alanis Baum FENTANYL 08/25/2017 1:15:24 PM 50 mcg Sean Murray RN 50 mcg FENTANYL given in lab by Sean Murray RN in Right Hand via Peripheral IV. Ordered by St gwendolyn Baum. 1% XYLOCAINE 08/25/2017 1:19:16 PM 20 mL Jarett Baum 20 mL 1% XYLOCAINE given in lab by Jarett Baum in Right Radial via Subcutaneous. Ordered by Jarett Baum. NTG (IC) 08/25/2017 1:22:15 PM 200 mcg Jarett Baum 200 mcg NTG (IC) given in lab by Jarett Baum in Right Radial via Intra-coronary. Ordered by Jarett Baum. HEPARIN 08/25/2017 1:22:34 PM 5000 units Sean Murray RN 5000 units HEPARIN given in lab by Sean Murray RN in Right Hand via Peripheral IV. Ordered by Jarett Baum. Medication (Drip) Medication Time Given Dosage/Unit Concentration/Unit Diluent (ml) Solution IV Solutions 08/25/2017 1:01:02 PM 0 mL (IV) 500 NaCl .9 IV Solutions given in lab by Sean Murray RN in Right Wrist via Peripheral IV. Pump/Drip Flow = 20 ml /hr using NaCl .9. Ordered by Jarett Baum. NITROGLYCERIN DRIP 08/25/2017 1:01:20 PM 40 mcg/min 50 mg 250 D5W Patient arrived on 40 mcg/min NITROGLYCERIN DRIP given by Jarett Baum in Right Hand via Peripheral IV. Pump/Drip Flow = 12 ml/hr using D5W with a concentration of 50 mg in 250 ml. Ordered by Jarett Baum. NITROGLYCERIN DRIP 08/25/2017 1:30:33 PM 20 mcg/min 50 mg 250 D5W Patient arrived on 20 mcg/min NITROGLYCERIN DRIP given by Jarett Baum in Right Hand via Peripheral IV. Pump/Drip Flow = 6 ml/hr using D5W with a concentration of 50 mg in 250 ml. Ordered by Jarett Baum. Initial Case Assessment Cardiovascular HR NIBP Chest Pain 63 154/84 3 Edema Present Skin color Skin None Normal Warm Dry Circulatory - Right Pulses Dorsalis Pedis Femoral Radial 2 2 2 Scale (0,1,2,3,4,d) Circulatory - Left Pulses Dorsalis Pedis Femoral Radial 2 2 Scale (0,1,2,3,4,d) Neurological State Oriented to time-place- Alert Moves all extremities person Respiration - General Respiration Rate SpO2 (%) (B/min) 15 95 Final Case Assessment Cardiovascular HR NIBP Chest Pain 62 114/60 0 Edema Present Skin color Skin None Normal Warm Dry Circulatory - Right Pulses Dorsalis Pedis Femoral Radial 2 2 2 Scale (0,1,2,3,4,d) Circulatory - Left Pulses Dorsalis Pedis Femoral Radial 2 2 Scale (0,1,2,3,4,d) Neurological State Oriented to time-place- Alert Moves all extremities person Respiration - General Respiration Rate SpO2 (%) (B/min) 15 95 Chronological Log Time Study Chronological Log 12:55:46 Patient arrived via Bed. 12:55:47 Patient Name, D.O.B, / Armband Verified By R.N. 12:55:48 Consent signed by the physician and the patient and verified by the Offensive Coordinator staff. 12:55:52 Patient has been NPO for More than 6Hrs. 12:55:58 Allens test performed on the right radial and ulnar artery. 12:56:00 Skin Breakdown- none per patient Vitals capture started with the following parameters, Patient=Adult, Interval=5 min, Initial Pr ufjjqb=276 mmHg, 13:00:45 Deflation Rate=5 mmHg, Cuff placed on Left Arm 13:00:53 Patient Warmer Placed on the Table. 13:01:00 A # 20 IV was noted in the Hand (right). Grade = 0 13:01:01 A # 20 IV was noted in the Antecubital (left). Grade = 0 IV Solutions given in lab by Sean Murray RN in Right Wrist via Peripheral IV. Pump/Drip Flow = 20 ml/hr using NaCl .9. 13:01:02 Ordered by Jarett Baum. 13:01:06 Vitals capture stopped. 13:01:10 History and physical on the chart or being dictated. Patient arrived on 40 mcg/min NITROGLYCERIN DRIP given by Jarett Baum in Right Hand via Maryam pheral IV. 13:01:20 Pump/Drip Flow = 12 ml/hr using D5W with a concentration of 50 mg in 250 ml. Ordered by Jarett Baum. Vitals capture started with the following parameters, Patient=Adult, Interval=5 min, Initial Pr eysraw=116 mmHg, 13:05:51 Deflation Rate=5 mmHg, Cuff placed on Left Arm 13:13:01 HR=64 bpm, PCLL=035/84 mmhg, SpO2=93.0 %, Resp=15 B/min, Pain=3, Maria C=10, Christina=2 Assessment: Initial Case, HR=63 BPM, GIGS=450/84 mmhg, Chest Pain=3, Edema=None, Color=Normal, Skin = Warm, Dry Right Pulses: Олег Ped=2, Femoral=2, Radial=2 13:13:56 Left Pulses: Олег Ped=2, Femoral=2 Neurological: State=Alert, Ox3, CARDENAS Respiration: Resp=15 B/min, SpO2=95 % 13:14:19 Bilateral groins prepped with 2% chlorhexidine, and draped after a 3 minute waiting time. 13:14:22 1 mg VERSED given in lab by Sean Murray RN in Right Hand via Peripheral IV. Ordered by Jarett Rice. 13:14:41 Reference ECG taken 13:15:24 50 mcg FENTANYL given in lab by Sean Murray RN in Right Hand via Peripheral IV. Ordered by Jarett Baum. 13:16:36 HR=66 bpm, SJQQ=456/69 mmhg, SpO2=94.0 %, Resp=19 B/min, Pain=3, Maria C=10, Christina=2 Time Out. Correct patient, correct procedure, correct physician, power injector not loaded with contrast with surgical 13:18:32 team present. Time Out Concurred by MD and individual staff in procedure. 13:18:33 Case Start 13:19:16 20 mL 1% XYLOCAINE given in lab by Jarett Baum in Right Radial via Subcutaneous. Ordered by Jarett Baum. 13:21:35 HR=59 bpm, UWXP=293/67 mmhg, SpO2=96.0 %, Resp=20 B/min, Pain=3, Maria C=10, Christina=2 13:21:36 Pressure channel 1 zeroed. 13:21:45 Access site was Radial Artery. A SHEATH, FR6 RADIAL PRELUDE EASE 11CM FR 6 was advanced into the Radial (right) using the Mary fied Seldinger 13:21:47 technique. 13:22:15 200 mcg NTG (IC) given in lab by Jarett Baum in Right Radial via Intra-coronary. Ordered by Jarett Baum. 13:22:34 5000 units HEPARIN given in lab by Sean Murray RN in Right Hand via Peripheral IV. Ordered by Jarett Baum. 13:23:20 A JR 5.0 DXTERITY CATHETER fr 5 was advanced over a wire. contrast was used for injections. Recorded Pressure: LV, HR=63, Condition=Condition 1 13:24:03 (Left Ventricle) LV 139/-2/11 Recorded Pressure: LV, Ao, HR=61, Condition=Condition 1 13:24:20 (Left Ventricle) LV 134/-12/11, (Aorta) Ao 126/60/94 Recorded Pressure: Ao, HR=63, Condition=Condition 1 13:25:04 (Aorta) Ao 122/69/94 13:25:20 The RCA was injected and visualized at various angles. OMNIPAQUE, 350 MG, 150ML 150ML used . 13:26:36 HR=67 bpm, CQMF=231/63 mmhg, SpO2=98 %, Resp=22 B/min, Pain=3, Maria C=10, Christina=2 After removing the current catheter a JL 3.5 INFINITI CATHETER FR 5 was advanced over a WIRE, E XCHANGE 260CM 13:26:48 3MMJ 260CM. 13:27:52 The LCA was injected and visualized at various angles. OMNIPAQUE, 350 MG, 150ML 150ML used . Patient arrived on 20 mcg/min NITROGLYCERIN DRIP given by Jarett Baum in Right Hand via Maryam pheral IV. 13:30:33 Pump/Drip Flow = 6 ml/hr using D5W with a concentration of 50 mg in 250 ml. Ordered by Radha Baum. 13:30:58 A wire was inserted via Fem Art (right). 13:31:06 Catheter was removed 13:31:33 HR=65 bpm, SCIH=784/59 mmhg, SpO2=96.0 %, Resp=17 B/min, Pain=3, Maria C=10, Christina=2 13:31:36 Case End 13:35:57 Catheter(s) removed without difficulty Radial Compression Device Used. 12 mLs of air placed in BAND, RADIAL COMPRESSION TR SHORT 24 24 CM. Affected 13:36:30 hand 95 % O2 saturation. 13:36:32 HR=62 bpm, YHEH=780/60 mmhg, SpO2=95.0 %, Resp=15 B/min, Pain=3, Maria C=10, Christina=2 13:36:42 Vitals capture stopped. Assessment: Final Case, HR=62 BPM, ZICB=943/60 mmhg, Chest Pain=0, Edema=None, Color=Normal, S kin = Warm, Dry Right Pulses: Олег Ped=2, Femoral=2, Radial=2 13:36:50 Left Pulses: Олег Ped=2, Femoral=2 Neurological: State=Alert, Ox3, CARDENAS Respiration: Resp=15 B/min, SpO2=95 % 13:43:11 Bedside Report will be given. 13:45:46 A Left Heart Cath was performed. 13:47:39 [facility] to [facility] End Study - Contrast Media Used In Study Contrast Total Opened (mL) Total Used (mL) Total Wasted (mL) Omnipaque 50 50 0 End Study - Maximum Contrast Load Max Contrast Load (mL) 446.4 End Study - Radiation Exposure Fluoro Time (minutes) 1.6 End Study - Patient Disposition Complications Transferred To Telemetry Bed
--- NOTE | 2017-08-25 13:58 | MA ---
cc: Jarett Baum MD DATE: 08/25/2017 INDICATION: Non-ST elevation OR. PROCEDURES PERFORMED: 1. Fluoroscopy with interpretation. 2. Coronary angiography. 3. Left heart catheterization. METHOD: Risks, benefits and alternatives were discussed with the patient. The patient understood and consented to the procedure. The patient was brought into the catheterization lab, placed on the catheterization table. The right wrist was prepped and draped in sterile fashion. The right wrist was anesthetized with 2% lidocaine. The right radial artery was cannulated and a 6-Hebrew, 7 cm sheath was placed without difficulty. LEFT HEART CATHETERIZATION: Intraventricular hemodynamics: 134/2 mmHg with left ventricular end-diastolic pressure of 11 mmHg. CORONARY ANGIOGRAPHY; 1. Left main coronary artery is angiographically normal. 2. Left anterior descending coronary is widely patent. There is a diagonal branch widely patent. 3. Left circumflex widely patent. 4. Right coronary artery is a dominant vessel giving rise to a small posterior descending branch, widely patent. CONCLUSIONS: 1. Angiographically normal coronary arteries. 2. Normal left-sided filling pressure. PLAN: Despite elevated cardiac biomarkers, suggestive EKG, suggestive symptoms, there is no significant obstructive coronary artery disease. Echocardiogram did not suggest any Takotsubo cardiomyopathy, nor was there a stress precursor. 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 We will start her on a low dose of amlodipine. We will watch overnight and if symptoms resolve, she is otherwise doing well, she can be discharged. Jarett Baum MD MAICOL/SB , 01:39 PM , 01:57 PM
[2017-08-25] MEDS ORDERED: POTASSIUM CHLORIDE 20 MEQ CONTROLLED RELEASE TAB PO ONE (14:00)
[2017-08-25] MEDS ORDERED: IOHEXOL 350 MG/ML 50 ML BTL (for Cath Lab) OTHER ONE (15:17)
[2017-08-25] MEDS: amLODIPine BESYLATE 5 MG TAB PO SCH (16:22)
[2017-08-25] MEDS: PANTOPRAZOLE SODIUM 40 MG VIAL IV PUSH SCH (20:29)
[2017-08-26] VITALS (16 sets, daily range): BP systolic 125–133; BP diastolic 59–62; PULSE 60–72; RESP 16–18; TEMP 98.5–99.4; O2SAT 95–97
[2017-08-26] MEDS: ACETAMINOPHEN 325 MG TAB PO PRN (02:24)
[2017-08-26] MEDS: MORPHINE SULFATE 2 MG/ML SYRINGE IV PUSH PRN (03:10)
[2017-08-26 04:45] LABS: AUTOMATED NEUTROPHIL # 3.2 TH/MM3 (1.8-7.7); BASOPHIL % 0.8 % (0.0-2.0); EOSINOPHIL # 0.1 TH/MM3 (0-0.4); HEMOGLOBIN 11.6 GM/DL (11.6-15.3); LYMPH % 25.4 % (9.0-44.0); LYMPHOCYTE # 1.4 TH/MM3 (1.0-4.8); MEAN CELL VOLUME 92.7 FL (80.0-100.0); MEAN CORPUSCULAR HEMOGLOBIN 31.6 PG (27.0-34.0); MEAN CORPUSCULAR HGB CONC 34.1 % (32.0-36.0); MEAN PLATELET VOLUME 9.4 FL (7.0-11.0); MONO % 11.6 % (0.0-8.0); MONOCYTE # 0.6 TH/MM3 (0-0.9); NEUT % 60.2 % (16.0-70.0); PLATELET COUNT 202 TH/MM3 (150-450); RED BLOOD COUNT 3.66 MIL/MM3 (4.00-5.30); RED CELL DISTRIBUTION WIDTH 13.1 % (11.6-17.2); WHITE BLOOD COUNT 5.4 TH/MM3 (4.0-11.0)
[2017-08-26 05:10] LABS: BICARBONATE 27.8 MEQ/L (21.0-32.0); CALCIUM 8.5 MG/DL (8.5-10.1); CREATININE 0.66 MG/DL (0.50-1.00)
[2017-08-26 05:14] LABS: CHOLESTEROL/ HDL RATIO 3.69 RATIO; HDL CHOLESTEROL 49.2 MG/DL (40.0-60.0)
[2017-08-26] MEDS: LEVOTHYROXINE SODIUM 50 MCG TAB PO SCH (06:24)
--- NOTE | 2017-08-26 07:43 | PD.CARD.PN ---
Subjective Subjective Remarks Chest is feeling much better today, discomfort currently 1/10 in severity. Telemetry did show some episodes of NSVT yesterday morning, no further episodes after cath yesterday afternoon noted. Patient reports she is feeling much better and hoping to go home. Objective Medications Current Medications Medications (Trade) Dose Ordered Sig/James Route Start Time Stop Time Status Last Admin Nitroglycerin/ Dextrose 250 ml @ 1.5 mls/hr TITRATE PRN IV 08/24/17 20:30 08/24/17 20:59 (Xanax) 0.5 mg BID PRN PO 08/24/17 21:00 (PROzac) 40 mg DAILY PO 08/25/17 09:00 08/25/17 09:52 (Synthroid) 50 mcg DAILY@0600 PO 08/25/17 06:00 08/26/17 06:24 (Cozaar) 50 mg BID PO 08/24/17 21:00 08/25/17 20:29 (KCl) 40 meq DAILY PO 08/25/17 09:00 08/25/17 09:54 (Drisdol) 50,000 units We@0900 PO 08/25/17 09:00 08/25/17 09:53 (NS Flush) 2 ml UNSCH PRN IV FLUSH 08/24/17 21:00 (NS Flush) 2 ml BID IV FLUSH 08/24/17 21:00 08/25/17 20:29 (Tylenol) 650 mg Q4H PRN PO 08/24/17 21:00 08/26/17 02:24 (Zofran Inj) 4 mg Q6H PRN IVP 08/24/17 21:00 (Morphine Inj) 2 mg Q4HR PRN IV PUSH 08/24/17 21:00 08/26/17 03:10 (Narcan Inj) 0.4 mg UNSCH PRN IV PUSH 08/24/17 21:00 (Maryam-Colace) 1 tab BID PO 08/24/17 21:00 08/25/17 20:29 (Milk Of Magnesia Liq) 30 ml Q12H PRN PO 08/24/17 21:00 (Senokot) 17.2 mg Q12H PRN PO 08/24/17 21:00 (Dulcolax Supp) 10 mg DAILY PRN RECTAL 08/24/17 21:00 (Lactulose Liq) 30 ml DAILY PRN PO 08/24/17 21:00 (Protonix Inj) 40 mg Q24H IV PUSH 08/24/17 22:00 08/25/17 20:29 (Aspirin Chew) 81 mg DAILY PO 08/26/17 09:00 (Norvasc) 5 mg DAILY PO 08/25/17 13:45 08/25/17 16:22 Vital Signs / I&O Vital Signs Date Time Temp Pulse Resp B/P (MAP) Pulse Ox O2 Delivery O2 Flow Rate FiO2 08/26/17 06:00 64 08/26/17 05:00 68 08/26/17 04:00 64 08/26/17 03:24 18 08/26/17 03:15 18 08/26/17 03:00 66 08/26/17 03:00 99.4 66 18 125/59 (81) 95 08/26/17 02:00 72 08/26/17 01:00 68 08/26/17 00:00 68 08/25/17 23:00 81 08/25/17 23:00 98.2 81 18 109/55 (73) 95 08/25/17 22:00 72 08/25/17 21:00 72 08/25/17 20:00 68 08/25/17 19:00 99.3 69 18 140/65 (90) 94 08/25/17 19:00 69 08/25/17 18:00 68 08/25/17 17:43 96 21 08/25/17 17:00 66 08/25/17 16:00 68 08/25/17 16:00 98.4 68 16 126/69 (88) 96 08/25/17 15:00 68 08/25/17 15:00 70 08/25/17 14:00 66 08/25/17 13:00 69 08/25/17 12:00 98.4 57 16 146/76 (99) 96 08/25/17 12:00 58 08/25/17 11:11 97 08/25/17 11:00 70 08/25/17 10:00 56 08/25/17 09:00 54 08/25/17 08:00 56 I/O 08/25/17 08/25/17 08/25/17 08/26/17 08/26/17 4/26/18 07:00 15:00 23:00 07:00 15:00 23:00 Intake Total 50 ml 1231 ml 409 ml Output Total 600 ml Balance 50 ml 631 ml 409 ml Intake Oral 50 ml 700 ml 240 ml IV Total 531 ml 169 ml Output Urine Total 600 ml # Voids 1 # Bowel Movements 0 Physical Exam GENERAL: Well-developed well-nourished. In no acute distress. NECK: No carotid bruits. No JVD. CARDIOVASCULAR: Regular rate and rhythm. No murmur appreciated. RESPIRATORY: No accessory muscle use. Clear to auscultation. Breath sounds equal bilaterally. MUSCULOSKELETAL: No clubbing or cyanosis. No edema. NEUROLOGICAL: Awake and alert. Normal speech. Laboratory Laboratory Tests Test 08/25/17 10:30 08/25/17 11:29 08/26/17 04:04 Blood Urea Nitrogen 13 MG/DL 11 MG/DL Creatinine 0.55 MG/DL 0.66 MG/DL Random Glucose 97 MG/DL 94 MG/DL Calcium Level 8.3 MG/DL 8.5 MG/DL Sodium Level 140 MEQ/L 140 MEQ/L Potassium Level 3.1 MEQ/L 3.7 MEQ/L Chloride Level 103 MEQ/L 105 MEQ/L Carbon Dioxide Level 30.3 MEQ/L 27.8 MEQ/L Anion Gap 7 MEQ/L 7 MEQ/L Estimat Glomerular Filtration Rate 112 ML/MIN 91 ML/MIN Activated Partial Thromboplast Time 38.0 SEC White Blood Count 5.4 TH/MM3 Red Blood Count 3.66 MIL/MM3 Hemoglobin 11.6 GM/DL Hematocrit 34.0 % Mean Corpuscular Volume 92.7 FL Mean Corpuscular Hemoglobin 31.6 PG Mean Corpuscular Hemoglobin Concent 34.1 % Red Cell Distribution Width 13.1 % Platelet Count 202 TH/MM3 Mean Platelet Volume 9.4 FL Neutrophils (%) (Auto) 60.2 % Lymphocytes (%) (Auto) 25.4 % Monocytes (%) (Auto) 11.6 % Eosinophils (%) (Auto) 2.0 % Basophils (%) (Auto) 0.8 % Neutrophils # (Auto) 3.2 TH/MM3 Lymphocytes # (Auto) 1.4 TH/MM3 Monocytes # (Auto) 0.6 TH/MM3 Eosinophils # (Auto) 0.1 TH/MM3 Basophils # (Auto) 0.0 TH/MM3 CBC Comment DIFF FINAL Differential Comment Triglycerides Level 156 MG/DL Cholesterol Level 182 MG/DL LDL Cholesterol 102 MG/DL HDL Cholesterol 49.2 MG/DL Cholesterol/HDL Ratio 3.69 RATIO Imaging Last Impressions Chest X-Ray 08/24/17 1711 Signed Impressions: Service Date/Time: Thursday, August 24, 2017 17:39 - CONCLUSION: No acute cardiopulmonary disease identified. Ab Luna MD Assessment and Plan Assessment and Plan 62-year-old female with past medical history of hypertension, hypothyroidism, depression who presented for chest pain and was found to have troponin elevation to 4.55. Prinzmetal angina: Cardiac catheterization 08/25 with angiographically normal coronary arteries. Echocardiogram was unremarkable as well. Symptoms seen most consistent with Prinzmetal angina, and patient has been started on amlodipine with improvement in symptoms. NSVT: Ischemic workup negative as above. Resume carvedilol. Sudheer Antonio Aug 26, 2017 07:43
[2017-08-26] MEDS ORDERED: AMLO5 PO (08:32)
--- NOTE | 2017-08-26 08:33 | HHI.DCPOC ---
Discharge Care Plan Diagnosis: (1) Prinzmetal angina (2) NSVT (nonsustained ventricular tachycardia) (3) Hypokalemia (4) Chest pain (5) Elevated troponin Goals to Promote Your Health * To prevent worsening of your condition and complications * To maintain your health at the optimal level Directions to Meet Your Goals Take your medications as prescribed Follow your dietary instruction Follow activity as directed Keep your appointments as scheduled Take your immunizations and boosters as scheduled If your symptoms worsen call your PCP, if no PCP go to Urgent Care Center or Emergency Room Smoking is Dangerous to Your Health. Avoid second hand smoke Call the 24-hour hour crisis hotline for domestic abuse at Leisa Alex Aug 26, 2017 08:33
[2017-08-26] MEDS: DOCUSATE SODIUM 50 MG/SENNA 8.6 MG TAB PO SCH (09:00)
[2017-08-26] MEDS ORDERED: CARVEDILOL 6.25 MG TAB PO SCH (09:00)
[2017-08-26] MEDS ORDERED: ASPIRIN 325 MG TAB PO SCH (09:00)
[2017-08-26] MEDS ORDERED: ASPIRIN 81 MG CHEW TAB PO SCH (09:00)
[2017-08-26] MEDS: POTASSIUM CHLORIDE 20 MEQ CONTROLLED RELEASE TAB PO SCH (09:36)
[2017-08-26] MEDS: amLODIPine BESYLATE 5 MG TAB PO SCH (09:38)
[2017-08-26] MEDS: FLUoxetine HCL 20 MG CAP PO SCH (09:38)
[2017-08-26] MEDS: LOSARTAN 50 MG TAB PO SCH (09:38)
[2017-08-26] MEDS: SODIUM CHLORIDE 0.9% FLUSH 10 ML FLUSH IV FLUSH SCH (09:39)
--- NOTE | 2017-08-26 11:22 | HHI.DS ---
Discharge Summary Admission Date Aug 24, 2017 at 21:10 Discharge Date: Aug 26, 2017 Admitting Diagnosis chest pain, elevated troponin (1) Chest pain ICD Codes: R07.9 - Chest pain, unspecified Status: Acute (2) Elevated troponin ICD Codes: R74.8 - Abnormal levels of other serum enzymes Status: Acute (3) HTN (hypertension) ICD Codes: I10 - Essential (primary) hypertension Status: Chronic (4) Hypothyroidism ICD Codes: E03.9 - Hypothyroidism, unspecified Status: Chronic (5) Hypokalemia ICD Codes: E87.6 - Hypokalemia Status: Acute Consultants Dr. Baum, Cardiology Procedures cardiac catheterization (08/25) with Dr. Baum Brief History 62-year-old female states she developed chest pain with left arm numbness and sweaty feeling this morning. She states this weekend she flew up to [place] for her daughter's wedding and flew back yesterday. She denies other concurrent complaints other than intermittent shortness of breath. She states she took a baby aspirin today. She denies any prior cardiac issues or routine heart testing. She denies specific modifying factors. Quality is pressure. Severity is moderate. Duration is today. She states she tried a Xanax without relief. Patient also has had intermittant diaphoresis and nausea and vomit , patient in er received IV morphine and ntg paste but pain continued and started on nitro drip which is helping will admit to IMC or CVICU consult cardiology. CBC/BMP: 08/26/17 0404 08/26/17 0404 Significant Findings Laboratory Tests Test 08/24/17 17:55 08/24/17 21:20 08/24/17 22:00 08/25/17 03:09 Red Blood Count 3.96 MIL/MM3 (4.00-5.30) 3.96 MIL/MM3 (4.00-5.30) Neutrophils (%) (Auto) 75.2 % (16.0-70.0) Random Glucose 110 MG/DL (74-106) Potassium Level 3.0 MEQ/L (3.5-5.1) Estimat Glomerular Filtration Rate 85 ML/MIN (>89) Troponin I 0.14 NG/ML (0.02-0.05) 0.98 NG/ML (0.02-0.05) 4.55 NG/ML (0.02-0.05) Activated Partial Thromboplast Time 32.5 SEC (24.3-30.1) Test 08/25/17 10:30 08/25/17 11:29 08/26/17 04:04 Calcium Level 8.3 MG/DL (8.5-10.1) Potassium Level 3.1 MEQ/L (3.5-5.1) Activated Partial Thromboplast Time 38.0 SEC (24.3-30.1) Red Blood Count 3.66 MIL/MM3 (4.00-5.30) Hematocrit 34.0 % (35.0-46.0) Monocytes (%) (Auto) 11.6 % (0.0-8.0) Triglycerides Level 156 MG/DL (42-150) LDL Cholesterol 102 MG/DL (0-99) Imaging Last Impressions Chest X-Ray 08/24/17 3931 Signed Impressions: Service Date/Time: Thursday, August 24, 2017 17:39 - CONCLUSION: No acute cardiopulmonary disease identified. Ab Luna MD PE at Discharge GENERAL: This is a well-nourished, well-developed patient, in no apparent distress. CARDIOVASCULAR: Bradycardic RESPIRATORY: Clear to auscultation. Breath sounds equal bilaterally. GASTROINTESTINAL: Abdomen soft, non-tender, nondistended. Normal active bowel sounds MUSCULOSKELETAL: Extremities without clubbing, cyanosis, or edema. NEURO: Alert & Oriented x4 to person, place, time, situation. Moves all ext x4 Hospital Course Chest pain Prinzmetal angina ntg drip, heparin drio and morphine initially DC after cardiac cath Cardiac catheterization (08/26) revealed: Angiographically normal coronary arteries and normal left-filling pressure continue home Coreg 6.25 mg PO BID and Losartan 50 mg PO BID consult cardiology, appreciate input Echocardiogram: Normal left ventricular size. Wall thickness is measured at the upper limits of normal. Mild thickening of the mitral valve leaflets. Mild mitral valve regurgitation. There is trace tricuspid valve regurgitation. The estimated pulmonary arterial pressure is 27.8 mmHg. Mild pulmonary valve regurgitation. serial enzymes 0.14, 0.98, 4.55 aspirin daily Lipid profile reviewed LDL 102 DC nifedipine, amlodipine started per cardiology chest pain improved Elevated troponin as above HTN (hypertension) continue home Coreg 6.25 mg PO BID and Losartan 50 mg PO BID Amlodipine started Hypothyroidism Continue home Synthroid Hypokalemia replaced in ER recheck (08/25) 3.1 with continue potassium 40 meq daily and give additional 40 meq x 1 Mag 1.9 recheck BMP revealed potassium 3.7 Pt Condition on Discharge: Stable Discharge Disposition: Discharge Home Discharge Instructions DIET: Follow Instructions for: Heart Healthy Diet Activities you can perform: Regular-No Restrictions Follow up Referrals: Cardiology - [address] Baum PCP Follow-up - [address] Babatunde Oneal New Medications: Amlodipine (Norvasc) 5 Mg Tab 5 MG PO DAILY for angina and blood pressure, #30 TAB 0 Refills Continued Medications: Alprazolam (Alprazolam) 0.5 Mg Tab 0.5-1 MG PO BID PRN for ANXIETY, TAB 0 Refills Carvedilol (Coreg) 6.25 Mg Tab 6.25 MG PO BID, #60 TAB 0 Refills Cholecalciferol (Vitamin D3) 50,000 Unit Cap 09059 UNITS PO WEEKLY for Nutritional Supplement, #30 CAP 0 Refills Fluoxetine (Prozac) 20 Mg Cap 40 MG PO DAILY, #30 CAP 0 Refills Hydrochlorothiazide (Hydrochlorothiazide) 25 Mg Tab 25 MG PO DAILY, #30 TAB 0 Refills Levothyroxine (Levothyroxine) 50 Mcg Tab 50 MCG PO DAILY for Thyroid, #30 TAB 0 Refills Losartan (Losartan) 50 Mg Tab 50 MG PO BID for Blood Pressure Management, #60 TAB 0 Refills Potassium Chloride ER (K-Tab) 20 Meq Tab 40 MEQ PO DAILY for Electrolyte Replacement, #30 TAB 0 Refills Discontinued Medications: Nifedipine ER 24 HR (Nifedipine ER 24 HR) 60 Mg Tab 60 MG PO DAILY, #30 TAB 0 Refills Leisa Alex Aug 26, 2017 11:22
[2017-08-26] MEDS ORDERED: NITR1SUB3 SL (14:09)
== END 2017-08-26 17:00 | disposition home or self-care (01) | DRG 287 ==
LOC: NEPE 16:34 → NEDA 18:56 → OBSVTOIN 21:10 → HCPC 23:45
PROVIDERS: ADMIT Hospitalist; ATTEND Hospitalist
PROC: B2111ZZ Fluoroscopy of Multiple Coronary Arteries using Low Osmolar Contrast (ICD-10-PCS; 2017-08-25)
PROC: 4A023N7 Measurement of Cardiac Sampling and Pressure, Left Heart, Percutaneous Approach (ICD-10-PCS; principal; 2017-08-25 13:30)
DX: I20.1 Angina pectoris with documented spasm (principal); I47.2 Ventricular tachycardia; E87.6 Hypokalemia; I10 Essential (primary) hypertension; E03.9 Hypothyroidism, unspecified; F32.9 Major depressive disorder, single episode, unspecified; F41.9 Anxiety disorder, unspecified; Z87.891 Personal history of nicotine dependence
CPT/HCPCS: 71045; 80048; 80053; 80061; 82550; 83690; 83735; 83880; 84484; 85025; 85027; 85379; 85610; 85730; 93005; 93306; 93458; 99152; 99285; C1769; C1893; C9113; J0583; J1644; J2250; J2270; J2405; J3010; Q9967